=== PATIENT | female | born 1970 ===

== ENCOUNTER 2020-02-26 06:00 | Day surgery (SDC) | payer OTHER ==
[~2020-02-26 06:00] MED LIST: CHILDREN'S ASPI81 MG PO; CRESTOR10 MG PO; PROTONIX20 MG PO
[2020-02-26] MEDS ORDERED: MORGIDOX100 MG PO (11:01)
[2020-02-26] MEDS ORDERED: NAPR500T14 PO (11:01)
== END 2020-02-26 19:40 | disposition home or self-care (01) ==
LOC: CIR.AMB 06:00
PROVIDERS: ATTEND Obstetrics & Gynecology
DX: N84.0 Polyp of corpus uteri (principal); N80.0 Endometriosis of uterus; Z20.828 Contact with and (suspected) exposure to other viral communicable diseases